=== PATIENT | female | born 1935 ===

== ENCOUNTER 2020-10-11 14:14 | Outpatient (CLI) | payer MEDICARE | END 2020-10-11 14:15 | disposition home or self-care (01) | LOC: CSHWCC 14:14 | PROVIDERS: ATTEND Nurse Practitioner Family | DX: I87.312 Chronic venous hypertension (idiopathic) with ulcer of left lower extremity (principal); L97.222 Non-pressure chronic ulcer of left calf with fat layer exposed; R60.0 Localized edema; G45.9 Transient cerebral ischemic attack, unspecified; I10 Essential (primary) hypertension; I27.20 Pulmonary hypertension, unspecified; I48.91 Unspecified atrial fibrillation; I87.2 Venous insufficiency (chronic) (peripheral); M48.00 Spinal stenosis, site unspecified; Z85.3 Personal history of malignant neoplasm of breast | CPT/HCPCS: 29581; 99213; G0463 ==